=== PATIENT | male | born 1975 | race Two or more races ===

== ENCOUNTER 2019-03-26 11:25 | Emergency (ER) | payer MEDICAID ==
[~2019-03-26] VITALS: Ht 177.8 cm; Wt 120.5 kg
[2019-03-26 11:38] VITALS: BP 173/107
[2019-03-26] MEDS ORDERED: ketorolac trometh. 30mg/ml inj. IM ONE (13:00)
== END 2019-03-26 13:22 | disposition home or self-care (01) ==
LOC: ER 11:26
DX: S39.012A Strain of muscle, fascia and tendon of lower back, initial encounter (principal); G89.29 Other chronic pain; X58.XXXA Exposure to other specified factors, initial encounter; Y93.89 Activity, other specified; Y92.89 Other specified places as the place of occurrence of the external cause; Y99.8 Other external cause status
CPT/HCPCS: 96372; 99283; J1885

== ENCOUNTER 2024-03-20 11:25 | Emergency (ER) | payer MEDICAID ==
[~2024-03-20] VITALS: Ht 177.8 cm; Wt 139.9 kg
[2024-03-20 11:58] VITALS: BP 143/94; PULSE 93; RESP 16; TEMP 98.3; O2SAT 97
== END 2024-03-20 13:18 | disposition home or self-care (01) ==
LOC: ER 11:26
DX: S09.90XA Unspecified injury of head, initial encounter (principal); W19.XXXA Unspecified fall, initial encounter; Y93.89 Activity, other specified; Y92.89 Other specified places as the place of occurrence of the external cause; Y99.8 Other external cause status
CPT/HCPCS: 70450; 99284

== ENCOUNTER 2024-06-18 10:14 | Emergency (ER) | payer MEDICAID ==
[2024-06-18 10:35] VITALS: BP 167/96; PULSE 77; RESP 16; TEMP 97.8; O2SAT 100
[2024-06-18] MEDS ORDERED: IBUP-1985 PO (11:34)
== END 2024-06-18 12:06 | disposition home or self-care (01) ==
LOC: ER 10:14
DX: R07.81 Pleurodynia (principal); G43.909 Migraine, unspecified, not intractable, without status migrainosus; I10 Essential (primary) hypertension; I25.2 Old myocardial infarction; E11.9 Type 2 diabetes mellitus without complications; F41.9 Anxiety disorder, unspecified; F32.A Depression, unspecified; Z98.890 Other specified postprocedural states
CPT/HCPCS: 71101; 99283